=== PATIENT | female | born 1980 ===

== ENCOUNTER 2017-09-05 17:07 | Emergency (ER) | payer OTHER ==
[2017-09-05 17:21] VITALS: TEMP 98.5
[2017-09-05] MEDS ORDERED: Sodium Chloride 0.9% 500 ML IV STA (17:33)
[2017-09-05 18:20] VITALS: RESP 18
--- NOTE | 2017-09-05 18:44 | ED PDOC ---
Arrival/HPI - General Chief Complaint: ENT Problem Time Seen by Provider: 09/05/17 17:24 Historian: Patient, Family - History of Present Illness Narrative History of Present Illness (Text): 09/05/17 18:40 36yr old female presents today sent in by [facility] for evaluation of throat pain. pt states she has had painful swallowing x 2 months. + decreased hearing x 2 month. + nasal congestion. + dry cough. pt also c/o 1 week history of left sided back pain. no cp or sob. no vomiting/diarrhea. pt also states that she has been drinking 15 bottles of water daily. denies urinary symptoms. no other complaints. 09/05/17 18:43 Past Medical History - Provider Review Nursing Documentation Reviewed: Yes - Travel History Have you recently traveled outside [place] w/in the past 3 mons?: No - Infectious Disease Hx of Infectious Diseases: None - Tetanus Immunization Tetanus Immunization: Unknown - Psychiatric Hx Substance Use: No - Anesthesia Hx Anesthesia: No Family/Social History - Physician Review Nursing Documentation Reviewed: Yes Family/Social History: Unknown Family HX Smoking Status: Never Smoked Hx Alcohol Use: No Hx Substance Use: No Allergies/Home Meds Allergies/Adverse Reactions: Allergies No Known Allergies Allergy (Verified 09/05/17 17:16) Home Medications: Home Meds Medication Instructions Recorded Confirmed No Known Home Med 09/05/17 09/05/17 Review of Systems - Review of Systems Constitutional: Fevers. absent: Fatigue ENT: Sore Throat, Sinus Congestion Respiratory: Cough. absent: SOB, Wheezing Cardiovascular: absent: Chest Pain, Palpitations Gastrointestinal: absent: Abdominal Pain, Nausea, Vomiting Musculoskeletal: Back Pain. absent: Arthralgias, Neck Pain Skin: absent: Rash, Pruritis Neurological: absent: Headache, Dizziness Physical Exam Vital Signs Reviewed: Yes Vital Signs Temp Pulse Resp BP Pulse Ox 09/05/17 18:20 74 18 118/79 100 09/05/17 17:20 98.5 F 78 19 120/81 100 Temperature: Afebrile Blood Pressure: Normal Pulse: Regular Respiratory Rate: Normal Appearance: Positive for: Well-Appearing, Non-Toxic, Comfortable Pain Distress: None Mental Status: Positive for: Alert and Oriented X 3 - Systems Exam Head: Present: Atraumatic Conjunctiva: Present: Normal Ears: Present: Normal, NORMAL TM, Normal Canal. No: Erythema Mouth: Present: Moist Mucous Membranes, Normal Lips, Normal Tounge, Normal Teeth. No: Dry, Drooling, Trismus Pharnyx: Present: Normal. No: ERYTHEMA, EXUDATE, TONSILS ENLARGED, Peritonsilar Swelling, Uvular Deviation, Muffled/Hoarse Voice, Strider, Soft Palate/Uvular Edema Nose (External): Present: Atraumatic Nose (Internal): Present: Normal Inspection Neck: Present: Normal Range of Motion, Lymphadenopathy, Trachea Midline Respiratory/Chest: Present: Clear to Auscultation, Good Air Exchange. No: Respiratory Distress, Accessory Muscle Use Cardiovascular: Present: Regular Rate and Rhythm, Normal S1, S2. No: Murmurs Abdomen: No: Tenderness Back: Present: Normal Inspection, Other (+ minimal ttp over left upper back; no step offs or crepitus, no edema no erythema, no ecchymosis; no rash. ). No: CVA Tenderness, Midline Tenderness Upper Extremity: Present: Normal ROM Lower Extremity: Present: Normal ROM Neurological: Present: GCS=15, Speech Normal Skin: Present: Warm, Dry, Normal Color. No: Rashes Lymphatic: Present: Cervical Adenopathy Psychiatric: Present: Alert, Oriented x 3 Medical Decision Making ED Course and Treatment: 09/05/17 18:45 36yr old female with 2 month history of difficulty swallowing, b/l ear pain. cbc: wnl cmp; wnl UA: cxr: wnl ct soft tissue neck; FINDINGS: Nasopharynx: There is swelling/thickening of the right posterior wall of the nasopharynx and adjacent soft palate. This may be inflammatory, although a mass cannot be excluded. Oropharynx: See above. Hypopharynx: No acute abnormality. Larynx: Normal epiglottis. Trachea: No acute abnormality. Retropharyngeal space: No acute abnormality. Submandibular/parotid glands: Small intraparotid lymph nodes/nodules are visualized, which are subcentimeter in size. Thyroid: No enlarged or calcified nodules. Bones/joints: There is straightening of the lordotic curvature of the cervical spine. Vasculature: No acute findings. Lymph nodes: Mild enlarged level I cervical lymph nodes are identified bilaterally. On the left side, this measures 1.6 x 0.6 cm. These lymph nodes are nonspecific as to etiology. Additional small cervical lymph nodes are identified. Sinuses: Mucous retention cysts or polyps are visualized within the left maxillary sinus. Lung apices: Unremarkable as visualized. IMPRESSION: 1. There is swelling/thickening of the right posterior wall of the nasopharynx and adjacent soft palate. This may be inflammatory, although a mass cannot be excluded. Further clinical evaluation is recommended. 2. Mild enlarged level I cervical lymph nodes are identified bilaterally. These lymph nodes are nonspecific as to etiology. 3. Small intraparotid lymph nodes/nodules are visualized, which are subcentimeter in size. 4. Paranasal sinus disease is noted above. i discussed case in depth with dr. cortez; (ENT slab conditioner supervisor); he states that patient will need f/u outpatient for scope. pt can f/u in the office or at [facility] clinic. 09/05/17 21:15 all results discussed in depth with patient and boyfriend using curb and gutter laborer phone ; private branch exchange operator #[phone]. advised patient and boyfriend of CT findings of inflammation vs Mass. stressed importance of f/u with ENT specialist. impression; possible nasopharyneal mass Follow up with ENT specialist within the next 2 days. Follow up with the primary care physician within the next 2 days. return immediately if symptoms worsen, persist or if new symptoms develop. - Lab Interpretations Lab Results: 09/05/17 18:30 09/05/17 18:30 Lab Results 09/05/17 18:30: WBC 9.6, RBC 4.91, Hgb 14.3, Hct 40.8, MCV 83.1, MCH 29.1, MCHC 35.0, RDW 12.8, Plt Count 308, MPV 10.0, Gran % 70.2 H, Lymph % (Auto) 22.4, Bleckley % (Auto) 5.7, Eos % (Auto) 1.5, Baso % (Auto) 0.2, Gran # 6.76 H, Lymph # 2.2, Bleckley # 0.6, Eos # 0.1, Baso # 0.02 09/05/17 18:30: Sodium 142, Potassium 3.7, Chloride 106, Carbon Dioxide 25, Anion Gap 15, BUN 12, Creatinine 0.6 L, Est GFR ( Amer) > 60, Est GFR ( Non-Af Amer) > 60, Random Glucose 86, Calcium 9.2, Total Bilirubin 0.4, AST 28, ALT 24, Alkaline Phosphatase 77, Total Protein 7.8, Albumin 4.6, Globulin 3.2, Albumin/Globulin Ratio 1.4 - RAD Interpretation Radiology Orders: 09/05/17 17:32 NECK SOFT TISSUE W/CONTRAST [CT] Stat CHEST PORTABLE [RAD] Stat - Medication Orders Current Medication Orders: Discontinued Medications Sodium Chloride (Sodium Chloride 0.9%) 500 mls @ 999 mls/hr IV .Q31M STA Stop: 09/05/17 18:03 Last Admin: 09/05/17 18:30 Dose: 999 mls/hr eMAR Start Stop Document 09/05/17 18:30 LA (Rec: 09/05/17 18:39 LA [id number]) Intravenous Solution Start Date 09/05/17 Start Time 18:30 End Date 09/05/17 End time 19:00 Total Infusion Time 30 Disposition/Present on Arrival - Present on Arrival Any Indicators Present on Arrival: No History of DVT/PE: No History of Uncontrolled Diabetes: No Urinary Catheter: No History of Decub. Ulcer: No History Surgical Site Infection Following: None - Disposition Have Diagnosis and Disposition been Completed?: Yes Diagnosis: Nasopharyngeal mass, Throat pain Disposition: HOME/ ROUTINE Disposition Time: 21:22 Patient Plan: Discharge Condition: GOOD Additional Instructions: Follow up with ENT specialist within the next 2 days. Follow up with the primary care physician within the next 2 days. return immediately if symptoms worsen, persist or if new symptoms develop. Referrals: Fernandez Cortez DO [Doctor Osteopathy] - Follow up with primary Anthony Fleming MD [Staff Provider] - Follow up with primary [facility] [place] - Follow up with primary [facility] [Outside] - Follow up with primary Forms: Scaffold (Albanian), WORK NOTE
[2017-09-05 18:50] LABS: ALB/GLOB RATIO 1.4 (1.1-1.8); ALKALINE PHOSPHATASE 77 U/L (38-126); ALT/SGPT 24 U/L (7-56); AST/SGOT 28 U/L (14-36); BASO # 0.02 K/mm3 (0.0-2.0); BASO % 0.2 % (0.0-3.0); BILIRUBIN,TOTAL 0.4 mg/dL (0.2-1.3); BLOOD UREA NITROGEN 12 mg/dL (7-21); CALCIUM 9.2 mg/dL (8.4-10.5); CARBON DIOXIDE 25 mmol/L (21-33); CHLORIDE 106 mmol/L (98-107); EOS # 0.1 (0.0-0.7); EOS % 1.5 % (1.5-5.0); GFR AFRICAN-AMERICAN > 60; GLUCOSE,RANDOM 86 mg/dL (70-110); GRAN # 6.76 (1.4-6.5); GRAN % 70.2 % (50.0-68.0); HEMATOCRIT 40.8 % (36.0-48.0); LYMPH # 2.2 (1.2-3.4); LYMPH % 22.4 % (22.0-35.0); MEAN CELL VOLUME 83.1 fl (80.0-105.0); MEAN CORPUSCULAR HEMOGLOBIN 29.1 pg (25.0-35.0); MONO # 0.6 (0.1-0.6); MONO % 5.7 % (1.0-6.0); POTASSIUM 3.7 mmol/L (3.6-5.0); RED CELL DISTRIBUTION WIDTH 12.8 % (11.5-14.5); SODIUM 142 mmol/L (132-148); TOTAL PROTEIN 7.8 g/dL (5.8-8.3); WHITE BLOOD COUNT 9.6 10^3/ul (4.5-11.0)
[2017-09-05] MEDS ORDERED: Iohexol 350 MG/100 ML VIAL ONE (19:02)
--- NOTE | 2017-09-05 20:06 | CT ---
EXAM: CT Neck With Intravenous Contrast EXAM DATE/TIME: 09/05/2017 5:32 PM CLINICAL HISTORY: The patient age is 36 years old and is female; Pain; Throat pain; Additional info: 2 month history worsening pain/difficulty swallow Facility exam id and description: Ct neckst neck soft tissue w/contrast TECHNIQUE: Axial computed tomography images of the neck with intravenous contrast. All CT scans at this facility use one or more dose reduction techniques, viz.: automated exposure control; ma/kV adjustment per patient size (including targeted exams where dose is matched to indication; i.e. head); or iterative reconstruction technique. Coronal and sagittal reformatted images were created and reviewed. CONTRAST: 100 mL of omni administered intravenously. COMPARISON: No relevant prior studies available. FINDINGS: Nasopharynx: There is swelling/thickening of the right posterior wall of the nasopharynx and adjacent soft palate. This may be inflammatory, although a mass cannot be excluded. Oropharynx: See above. Hypopharynx: No acute abnormality. Larynx: Normal epiglottis. Trachea: No acute abnormality. Retropharyngeal space: No acute abnormality. Submandibular/parotid glands: Small intraparotid lymph nodes/nodules are visualized, which are subcentimeter in size. Thyroid: No enlarged or calcified nodules. Bones/joints: There is straightening of the lordotic curvature of the cervical spine. Vasculature: No acute findings. Lymph nodes: Mild enlarged level I cervical lymph nodes are identified bilaterally. On the left side, this measures 1.6 x 0.6 cm. These lymph nodes are nonspecific as to etiology. Additional small cervical lymph nodes are identified. Sinuses: Mucous retention cysts or polyps are visualized within the left maxillary sinus. Lung apices: Unremarkable as visualized. IMPRESSION: 1. There is swelling/thickening of the right posterior wall of the nasopharynx and adjacent soft palate. This may be inflammatory, although a mass cannot be excluded. Further clinical evaluation is recommended. 2. Mild enlarged level I cervical lymph nodes are identified bilaterally. These lymph nodes are nonspecific as to etiology. 3. Small intraparotid lymph nodes/nodules are visualized, which are subcentimeter in size. 4. Paranasal sinus disease is noted above.
[2017-09-05 21:15] LABS: PH,URINE 6.5 (4.7-8.0); URINE BILIRUBIN NEGATIVE (NEGATIVE); URINE BLOOD TRACE-LYSED (NEGATIVE); URINE GLUCOSE (UA) NEGATIVE (NEGATIVE); URINE KETONE NEGATIVE (NEGATIVE); URINE LEUKOCYTE ESTERASE NEGATIVE Leu/uL (NEGATIVE); URINE PROTEIN NEGATIVE mg/dL (<30 mg/dL); URINE UROBILINOGEN 0.2 E.U./dL (<1 E.U./dL)
[2017-09-05 21:22] LABS: URINE APPEARANCE CLEAR (CLEAR); URINE COLOR YELLOW (YELLOW)
[2017-09-05 21:32] LABS: URINE WBC 0 - 2 /hpf (0-6)
[2017-09-05 21:33] LABS: URINE BACTERIA FEW (NEG)
[2017-09-05 21:36] VITALS: BP 114/76; PULSE 64; O2SAT 98
--- NOTE | 2017-09-06 08:03 | RAD ---
HISTORY: cough COMPARISON: No prior. FINDINGS: LUNGS: No active pulmonary disease. PLEURA: No significant pleural effusion identified, no pneumothorax apparent. CARDIOVASCULAR: Normal. OSSEOUS STRUCTURES: No significant abnormalities. VISUALIZED UPPER ABDOMEN: Normal. OTHER FINDINGS: None. IMPRESSION: No active disease.
== END 2017-09-05 21:42 | disposition home or self-care (01) ==
LOC: ED 17:07
DX: J39.2 Other diseases of pharynx (principal); R07.0 Pain in throat
CPT/HCPCS: 70491; 71010; 80053; 81001; 85025; 99283; J7040; Q9967

== ENCOUNTER 2018-03-20 03:45 | Emergency (ER) | payer OTHER ==
[2018-03-20 04:04] VITALS: RESP 18; TEMP 97.9
--- NOTE | 2018-03-20 04:44 | ED PDOC ---
Arrival/HPI - General Chief Complaint: Abdominal Pain Time Seen by Provider: 03/20/18 04:24 Historian: Patient, Family - History of Present Illness Narrative History of Present Illness (Text): 03/20/18 04:41 Toma Newman is a 37 year old female who presents to the Emergency department accompanied by relative complaining of dysuria for the past 2 days, Patient states her last normal menstrual period was on 02/14/2018. Patient also complaining left lower leg pain for the past 2 days. Patient denies any fever, chills, chest pain, shortness of breath, nausea, vomiting, diarrhea, neck pain, headache, dizziness,vaginal discharge or any other complaints. Symptom Onset: Gradual Symptom Course: Unchanged Activities at Onset: Light Context: Home Past Medical History - Provider Review Nursing Documentation Reviewed: Yes - Infectious Disease Hx of Infectious Diseases: None - Tetanus Immunization Tetanus Immunization: Unknown - Psychiatric Hx Substance Use: No - Anesthesia Hx Anesthesia: No Family/Social History - Physician Review Nursing Documentation Reviewed: Yes Family/Social History: Unknown Family HX Smoking Status: Never Smoked Hx Alcohol Use: No Hx Substance Use: No Allergies/Home Meds Allergies/Adverse Reactions: Allergies No Known Allergies Allergy (Verified 03/20/18 04:00) Review of Systems - Physician Review All systems were reviewed & negative as marked: Yes - Review of Systems Constitutional: Normal. absent: Fevers Eyes: Normal ENT: Normal Respiratory: Normal. absent: SOB, Cough Cardiovascular: Normal. absent: Chest Pain Gastrointestinal: Normal. absent: Abdominal Pain, Diarrhea, Nausea, Vomiting Genitourinary Female: Dysuria. absent: Hematuria, Urine Output Changes, Vaginal Bleeding Musculoskeletal: Other (+left leg pain). absent: Back Pain, Neck Pain Skin: Normal. absent: Rash Neurological: Normal. absent: Headache, Dizziness Endocrine: Normal Hemo/Lymphatic: Normal Psychiatric: Normal Physical Exam Vital Signs Reviewed: Yes Vital Signs Temp Pulse Resp BP Pulse Ox 03/20/18 05:46 84 18 118/74 99 03/20/18 04:01 97.9 F 87 18 120/75 98 Temperature: Afebrile Blood Pressure: Normal Pulse: Regular Respiratory Rate: Normal Appearance: Positive for: Well-Appearing, Non-Toxic, Comfortable Pain Distress: None Mental Status: Positive for: Alert and Oriented X 3 - Systems Exam Head: Present: Atraumatic, Normocephalic Pupils: Present: PERRL Extroacular Muscles: Present: EOMI Conjunctiva: Present: Normal Mouth: Present: Moist Mucous Membranes Neck: Present: Normal Range of Motion Respiratory/Chest: Present: Clear to Auscultation, Good Air Exchange. No: Respiratory Distress, Accessory Muscle Use Cardiovascular: Present: Regular Rate and Rhythm, Normal S1, S2. No: Murmurs Abdomen: No: Tenderness, Distention, Peritoneal Signs Back: Present: Normal Inspection. No: CVA Tenderness, Midline Tenderness, Paraspinal Tenderness Upper Extremity: Present: Normal Inspection. No: Cyanosis, Edema Lower Extremity: Present: Normal Inspection, NORMAL PULSES, Normal ROM, Neurovascularly Intact. No: Edema, CALF TENDERNESS, Cyanosis, Jarred's Sign, Tenderness, Swelling, Erythema, Deformity, Temperature Abnormalties Neurological: Present: GCS=15, CN II-XII Intact, Speech Normal, Motor Func Grossly Intact, Normal Sensory Function Skin: Present: Warm, Dry, Normal Color. No: Rashes Psychiatric: Present: Alert, Oriented x 3, Normal Insight, Normal Concentration Medical Decision Making ED Course and Treatment: 03/20/18 04:41 Impression: 37 year old female complaining of dysuria and left leg pain x 2 days. Plan: -- Labs, blood type and screen, Beta-HCG -- Urinalysis -- Transvaginal US -- US Duplex Lower Extremities -- Reassess and disposition Progress Notes: 03/20/18 06:38 Pt. feels fine in ED.Pt. is G2 AB1.Will commence on Macrobid antibiotics for UTI.Pt. with early advised follow up with her front end alignment specialist this week.States she will do so. - Lab Interpretations Lab Results: 03/20/18 04:50 03/20/18 04:50 Lab Results 03/20/18 04:50: Blood Type O POSITIVE, Antibody Screen Negative, BBK History Checked No verified bt 03/20/18 04:50: Beta HCG, Quant 1009.10 H 03/20/18 04:50: WBC 8.7, RBC 4.34, Hgb 12.2 D, Hct 35.0 L, MCV 80.6, MCH 28.1, MCHC 34.9, RDW 13.1, Plt Count 266, MPV 9.2 03/20/18 04:50: Sodium 143, Potassium 3.5 L, Chloride 108 H, Carbon Dioxide 22, Anion Gap 16, BUN 4 L, Creatinine 0.6 L, Est GFR ( Amer) > 60, Est GFR ( Non-Af Amer) > 60, Random Glucose 102, Calcium 8.6, Total Bilirubin 0.3, AST 36 D, ALT 29, Alkaline Phosphatase 50, Total Protein 6.9, Albumin 4.1, Globulin 2.8, Albumin/Globulin Ratio 1.5 03/20/18 04:20: Urine Color Yellow, Urine Appearance Clear, Urine pH 6.5, Ur Specific Gustavus <= 1.005, Urine Protein Negative, Urine Glucose (UA) Negative, Urine Ketones Negative, Urine Blood Trace-intact H, Urine Nitrate Negative, Urine Bilirubin Negative, Urine Urobilinogen 0.2, Ur Leukocyte Esterase Negative , Urine RBC 0 - 2, Urine WBC 0 - 2, Ur Epithelial Cells 0 - 2, Urine HCG, Qual Positive - RAD Interpretation Narrative RAD Interpretations (Text): 03/20/18 06:17 Venous doppler lower extremities-Negative for DVT Radiology Orders: 03/20/18 04:45 DUPLEX LOWER EXTRM VEIN BILAT [US] Stat 03/20/18 04:46 OB TRANSVAGINAL [US] Stat - Medication Orders Current Medication Orders: Sodium Chloride (Sodium Chloride 0.9%) 500 mls @ 500 mls/hr IV .Q1H STA Stop: 03/20/18 07:20 Last Admin: 03/20/18 06:29 Dose: 500 mls/hr eMAR Start Stop Document 03/20/18 06:29 PRETTY (Rec: 03/20/18 06:29 [facility]nathan [facility] [id number]) Intravenous Solution Start Date 03/20/18 Start Time 06:29 End Date 03/20/18 End time 06:59 Total Infusion Time 30 Nitrofurantoin Macrocrystals (Macrobid) 100 mg PO ONCE ONE PRN Reason: Protocol Stop: 03/20/18 06:37 - Scribe Statement The provider has reviewed the documentation as recorded by the Salvadoribrubens Sanders Provider Scribe Attestation: All medical record entries made by the Scribe were at my direction and personally dictated by me. I have reviewed the chart and agree that the record accurately reflects my personal performance of the history, physical exam, medical decision making, and the department course for this patient. I have also personally directed, reviewed, and agree with the discharge instructions and disposition. Disposition/Present on Arrival - Present on Arrival Any Indicators Present on Arrival: No History of DVT/PE: No History of Uncontrolled Diabetes: No Urinary Catheter: No History of Decub. Ulcer: No History Surgical Site Infection Following: None - Disposition Have Diagnosis and Disposition been Completed?: Yes Diagnosis: Early stage of , UTI (urinary tract infection), Muscle strain, lower leg Disposition: HOME/ ROUTINE Disposition Time: 06:40 Patient Plan: Discharge Condition: STABLE Discharge Instructions (ExitCare): Urinary Tract Infection, Adult (DC), - The First Month, Muscle Strain (DC) Additional Instructions: Drink plenty of liquids/take meds as prescribed/avoid strenuous physical activity/follow up with your front end alignment specialist this week Prescriptions: Nitrofurantoin Macrocrystals [Macrobid] 100 mg PO BID #6 cap Forms: Slicebooks (Arabic)
[2018-03-20 04:48] LABS: PH,URINE 6.5 (4.7-8.0); URINE BILIRUBIN NEGATIVE (NEGATIVE); URINE BLOOD TRACE-INTACT (NEGATIVE); URINE GLUCOSE (UA) NEGATIVE (NEGATIVE); URINE LEUKOCYTE ESTERASE NEGATIVE Leu/uL (NEGATIVE); URINE PROTEIN NEGATIVE mg/dL (<30 mg/dL); URINE UROBILINOGEN 0.2 E.U./dL (<1 E.U./dL)
[2018-03-20 04:53] LABS: HCG,QUALITATIVE URINE POSITIVE (NEGATIVE); URINE APPEARANCE CLEAR (CLEAR); URINE COLOR YELLOW (YELLOW)
[2018-03-20 05:05] LABS: URINE EPITHELIAL CELLS 0 - 2 /hpf (0-5); URINE RBC 0 - 2 /hpf (0-2); URINE WBC 0 - 2 /hpf (0-6)
[2018-03-20 05:06] LABS: MEAN CELL VOLUME 80.6 fl (80.0-105.0); MEAN CORPUSCULAR HEMOGLOBIN 28.1 pg (25.0-35.0); MEAN CORPUSCULAR HGB CONC 34.9 g/dl (31.0-37.0); MEAN PLATELET VOLUME 9.2 fl (7.0-11.0); RBC 4.34 10^6/uL (3.5-6.1); RED CELL DISTRIBUTION WIDTH 13.1 % (11.5-14.5); WHITE BLOOD COUNT 8.7 10^3/ul (4.5-11.0)
[2018-03-20 05:14] LABS: HEMOGLOBIN 12.2 g/dL (12.0-16.0)
[2018-03-20 05:20] LABS: ALB/GLOB RATIO 1.5 (1.1-1.8); ALBUMIN 4.1 g/dL (3.0-4.8); ALT/SGPT 29 U/L (7-56); AST/SGOT 36 U/L (14-36); BLOOD UREA NITROGEN 4 mg/dL (7-21); CALCIUM 8.6 mg/dL (8.4-10.5); GFR AFRICAN-AMERICAN > 60; GFR NON-AFRICAN AMERICAN > 60
--- NOTE | 2018-03-20 06:18 | US ---
EXAM: US First Trimester, Transabdominal US , Transvaginal CLINICAL HISTORY: 37 years old, female; Pain; complicated by abdominal or pelvic pain; Lower; First trimester; Gestational age or lmp: 01/26/2018; TECHNIQUE: Real-time transabdominal and transvaginal obstetrical ultrasound of the maternal pelvis and a first trimester with image documentation. Transvaginal imaging was used for better evaluation of the fetus and adnexa. COMPARISON: No relevant prior studies available. FINDINGS: Gestation: 0.5 x 0.4 x 0.5 cm saclike structure within uterus. No yolk sac. No pole. Uterus/cervix: Retroverted uterus. Two uterine masses, larger measuring 3.2 x 3.3 x 4.6 cm. Endometrium: 2.9 cm in thickness. Closed cervix. Ovaries: Normal ovaries. No adnexal masses. Free fluid: No significant free fluid. IMPRESSION: 1. Sac without pole or yolk sac. DDX: Early IUP, blighted ovum, ectopic (with pseudogestational sac). Followup is recommended. 2. Probable fibroid uterus.
[2018-03-20] MEDS ORDERED: Sodium Chloride 0.9% 500 ML IV STA (06:21)
[2018-03-20 07:04] VITALS: BP 125/74; PULSE 72; O2SAT 100
--- NOTE | 2018-03-20 14:32 | US ---
HISTORY: Leg pain and swelling. Evaluate for DVT PHYSICIAN(S): Robinson Nunez MD. TECHNIQUE: Duplex sonography and color-flow Doppler with graded compression were used to evaluate the deep venous systems of both lower extremities. FINDINGS: The visualized deep venous systems of both lower extremities are sonographically normal and compressible. Normal wave forms and augmentation are seen. There is no sonographic evidence for deep venous thrombosis in the visualized segments of both lower extremities. IMPRESSION: No sonographic evidence for deep venous thrombosis in the visualized segments of both lower extremities.
== END 2018-03-20 07:04 | disposition home or self-care (01) ==
LOC: ED 03:45
DX: O23.40 Unspecified infection of urinary tract in pregnancy, unspecified trimester (principal); Z3A.00 Weeks of gestation of pregnancy not specified; S86.912A Strain of unspecified muscle(s) and tendon(s) at lower leg level, left leg, initial encounter; X58.XXXA Exposure to other specified factors, initial encounter; Y92.9 Unspecified place or not applicable
CPT/HCPCS: 76817; 80053; 81001; 84702; 84703; 85027; 86850; 86900; 93970; 99284; J7040

== ENCOUNTER 2018-04-05 18:23 | Emergency (ER) | payer OTHER ==
[2018-04-05 18:31] VITALS: BMI 26.0
[2018-04-05 18:35] VITALS: O2SAT 100
[2018-04-05 19:12] LABS: BASO # 0.01 K/mm3 (0.0-2.0); BASO % 0.1 % (0.0-3.0); EOS # 0.1 (0.0-0.7); EOS % 0.5 % (1.5-5.0); GRAN # 8.85 (1.4-6.5); GRAN % 74.2 % (50.0-68.0); HEMOGLOBIN 13.3 g/dL (12.0-16.0); LYMPH # 2.4 (1.2-3.4); LYMPH % 19.8 % (22.0-35.0); MEAN CORPUSCULAR HEMOGLOBIN 28.7 pg (25.0-35.0); MEAN CORPUSCULAR HGB CONC 35.4 g/dl (31.0-37.0); MEAN PLATELET VOLUME 9.2 fl (7.0-11.0); MONO # 0.7 (0.1-0.6); MONO % 5.4 % (1.0-6.0); RBC 4.64 10^6/uL (3.5-6.1); RED CELL DISTRIBUTION WIDTH 13.2 % (11.5-14.5); URINE APPEARANCE CLEAR (CLEAR); URINE BILIRUBIN NEGATIVE (NEGATIVE); URINE BLOOD SMALL (NEGATIVE); URINE COLOR YELLOW (YELLOW); URINE GLUCOSE (UA) NEGATIVE (NEGATIVE); URINE LEUKOCYTE ESTERASE NEGATIVE Leu/uL (NEGATIVE); URINE PROTEIN NEGATIVE mg/dL (<30 mg/dL); URINE UROBILINOGEN 0.2 E.U./dL (<1 E.U./dL); WHITE BLOOD COUNT 11.9 10^3/ul (4.5-11.0)
[2018-04-05 19:15] LABS: URINE RBC 0 - 2 /hpf (0-2); URINE WBC NEGATIVE /hpf (0-6)
--- NOTE | 2018-04-05 19:26 | ED PDOC ---
Arrival/HPI <Grace Cosme - Last Filed: 04/05/18 21:07> <Frances Charlton - Last Filed: 04/05/18 21:39> - General Chief Complaint: Abdominal Pain Time Seen by Provider: 04/05/18 18:43 - History of Present Illness Narrative History of Present Illness (Text): 04/05/18 19:19 Patient is a 37 year old female with a past medical history of miscarriage at 2 months in 2004 who presents to the Emergency department complaining of abdominal pain, and vaginal discharge with bleeding. Patient says this started a few weeks ago. At that time she came to the hospital and was given monostat 3 and augmentin, and also found out she was . Patient took the medications as directed finishing them 1 week ago, but her "belly button pain" worsened to the point where she felt like her " belly button was going to explode". Patient says the thick yellow vaginal discharge did not resolve either and yesterday she noticed red streaking throughout the discharge. Patient admits to chills and vomiting. She denies fever, dizziness, headache, diarrhea, constipation, changes in urinary habits, vaginal lesions, and chest pain/shortness of breath. PMH: denies Meds: denies (other than those temporary listed above) Allergies: NKDA PSH: denies FH: denies SH: denies tobacco, alcohol, and elicit drug use 04/05/18 20:32 (Grace Cosme) Past Medical History - Infectious Disease Hx of Infectious Diseases: None - Tetanus Immunization Tetanus Immunization: Unknown - Psychiatric Hx Substance Use: No - Anesthesia Hx Anesthesia: No <Grace Cosme - Last Filed: 04/05/18 21:07> Family/Social History Family/Social History: No Known Family HX Smoking Status: Never Smoked Hx Alcohol Use: No Hx Substance Use: No <Grace Cosme - Last Filed: 04/05/18 21:07> Allergies/Home Meds <Grace Cosme - Last Filed: 04/05/18 21:07> <Frances Charlton - Last Filed: 04/05/18 21:39> Allergies/Adverse Reactions: Allergies No Known Allergies Allergy (Verified 03/20/18 04:00) Review of Systems - Physician Review All systems were reviewed & negative as marked: Yes - Review of Systems Constitutional: Normal Eyes: Normal ENT: Rhinorrhea Respiratory: Normal Cardiovascular: Normal Gastrointestinal: Abdominal Pain, Vomiting. absent: Constipation, Diarrhea, Hematemesis Genitourinary Female: Vaginal Bleeding, Vaginal Discharge. absent: Dysuria, Frequency, Hematuria Musculoskeletal: Normal Skin: Normal Neurological: Normal Psychiatric: Anxiety (worried she will lose this ) <Grace Cosme - Last Filed: 04/05/18 21:07> Physical Exam - Systems Exam Head: Present: Atraumatic, Normocephalic Pupils: Present: PERRL Extroacular Muscles: Present: EOMI Conjunctiva: Present: Normal Mouth: Present: Moist Mucous Membranes Neck: Present: Normal Range of Motion Respiratory/Chest: Present: Clear to Auscultation, Good Air Exchange. No: Respiratory Distress, Accessory Muscle Use Cardiovascular: Present: Regular Rate and Rhythm, Normal S1, S2. No: Murmurs Abdomen: Present: Tenderness (periumbilical), Guarding (voluntary). No: Distention, Peritoneal Signs Upper Extremity: Present: Normal Inspection Lower Extremity: Present: Normal Inspection Neurological: Present: GCS=15, Speech Normal Skin: Present: Warm, Dry, Normal Color. No: Rashes Psychiatric: Present: Alert, Oriented x 3, Normal Insight, Normal Concentration <Grace Cosme - Last Filed: 04/05/18 21:07> Vital Signs Temp Pulse Resp BP Pulse Ox 04/05/18 18:33 98.2 F 91 H 18 122/79 100 Medical Decision Making <Grace Cosme - Last Filed: 04/05/18 21:07> <Frances Charlton - Last Filed: 04/05/18 21:39> ED Course and Treatment: Patient Seen With Resident: In agreement with resident note which contains more details about the patient. Patient was seen and evaluated with resident. Came up with plan and treatment together. Vaginal discharge is white and clumpy with itchiness. 04/05/18 20:59 Gestation: Single live intrauterine . Ultrasound image is 6 weeks and 4 days. heart rate is 143 beats per minute. Placenta/amniotic fluid: Cannot be adequately evaluated due to the early gestational age. Uterus/cervix: myomas noted, intramural left 4.1 x 3.6 cm myoma and 1.1 x 1.2 cm anterior intramural myoma. Ovaries: Cysts in the left ovary measuring 2.3 x 2 cm. Free fluid: No free fluid. IMPRESSION: Single live intrauterine . Ultrasound image is 6 weeks and 4 days. heart rate is 143 beats per minute. 04/05/18 21:37 (Frances Charlton) - Lab Interpretations Lab Results: 04/05/18 18:55 04/05/18 18:55 Lab Results 04/05/18 18:55: Blood Type O POSITIVE, Antibody Screen Negative, BBK History Checked Patient has bt 04/05/18 18:55: Beta HCG, Quant 11510.00 H 04/05/18 18:55: Sodium 144, Potassium 3.5 L, Chloride 106, Carbon Dioxide 20 L, Anion Gap 21 H, BUN 5 L, Creatinine 0.5 L, Est GFR ( Amer) > 60, Est GFR (Non-Af Amer) > 60, Random Glucose 93, Calcium 9.1, Total Bilirubin 0.4, AST 33 , ALT 54, Alkaline Phosphatase 56, Total Protein 8.0, Albumin 4.7, Globulin 3.3 , Albumin/Globulin Ratio 1.4 04/05/18 18:55: Urine Color Yellow, Urine Appearance Clear, Urine pH 6.0, Ur Specific [place] <= 1.005, Urine Protein Negative, Urine Glucose (UA) Negative, Urine Ketones 15 H, Urine Blood Small H, Urine Nitrate Negative, Urine Bilirubin Negative, Urine Urobilinogen 0.2, Ur Leukocyte Esterase Negative, Urine RBC 0 - 2, Urine WBC Negative 04/05/18 18:55: WBC 11.9 H D, RBC 4.64, Hgb 13.3, Hct 37.6, MCV 81.0, MCH 28.7, MCHC 35.4, RDW 13.2, Plt Count 294, MPV 9.2, Gran % 74.2 H, Lymph % (Auto) 19.8 L, [place] % (Auto) 5.4, Eos % (Auto) 0.5 L, Baso % (Auto) 0.1, Gran # 8.85 H, Lymph # (Auto) 2.4, [place] # (Auto) 0.7 H, Eos # (Auto) 0.1, Baso # (Auto) 0.01 - RAD Interpretation Radiology Orders: 04/05/18 18:43 OB TRANSVAGINAL [US] Stat - PA / COUNT ROOM CLERK / Resident Statement MD/DO has reviewed & agrees with the documentation as recorded. MD/DO has examined the patient and agrees with the treatment plan. <Grace Cosme - Last Filed: 04/05/18 21:07> - Scribe Statement The provider has reviewed the documentation as recorded by the Scribe <Frances Charlton - Last Filed: 04/05/18 21:39> - Scribe Statement Yahir Woodard Provider Scribe Attestation: All medical record entries made by the Scribe were at my direction and personally dictated by me. I have reviewed the chart and agree that the record accurately reflects my personal performance of the history, physical exam, medical decision making, and the department course for this patient. I have also personally directed, reviewed, and agree with the discharge instructions and disposition. (Frances Charlton) Disposition/Present on Arrival - Present on Arrival History of DVT/PE: No History of Uncontrolled Diabetes: No Urinary Catheter: No History of Decub. Ulcer: No History Surgical Site Infection Following: None <BaGrace - Last Filed: 04/05/18 21:07> - Present on Arrival Any Indicators Present on Arrival: No - Disposition Have Diagnosis and Disposition been Completed?: Yes Disposition Time: 20:59 Patient Plan: Discharge <Frances Charlton - Last Filed: 04/05/18 21:39> - Disposition Diagnosis: Threatened , Yeast infection Disposition: HOME/ ROUTINE Patient Problems: Current Active Problems Problem Status Onset Threatened Acute Condition: GOOD Discharge Instructions (ExitCare): Threatened Miscarriage Print Language: FRENCH Additional Instructions: Follow-up with OB within 2 days. Start monistat 7. Return to ED if condition worsens. Referrals: Farehelpercherelle Cortez, [Primary Care Provider] - Follow up with primary Forms: [employer] (Romanian), WORK NOTE
[2018-04-05 19:33] LABS: ALB/GLOB RATIO 1.4 (1.1-1.8); ALBUMIN 4.7 g/dL (3.0-4.8); ALT/SGPT 54 U/L (7-56); AST/SGOT 33 U/L (14-36); BLOOD UREA NITROGEN 5 mg/dL (7-21); CALCIUM 9.1 mg/dL (8.4-10.5); GFR AFRICAN-AMERICAN > 60; GFR NON-AFRICAN AMERICAN > 60
[2018-04-05 23:24] VITALS: BP 125/80; PULSE 90; RESP 19; TEMP 98
--- NOTE | 2018-04-06 11:53 | US ---
HISTORY: , vaginal bleeding ; last menstrual period is reported 02/14/2018 with estimated gestational age of 7 weeks 1 day. COMPARISON: None available. TECHNIQUE: Transvaginal pelvic ultrasound was performed with longitudinal and transverse images submitted for interpretation. FINDINGS: UTERUS: Measures 11.5 x 6.5 x 8.1 cm. There is a inhomogeneous but predominate hypoechoic mass identified at the lower uterine segment at the left side of the fundus bridging submucous and sub serosal locations measuring 4.2 x 3.6 x 3.7 cm. Internal calcifications are identified shadowing posteriorly with the lesion compatible with a fibroid. There is an additional hypoechoic partially shadowing lesion at the right parasagittal fundus intramural in location measuring 1.2 x 0.9 x 1.1 cm compatible with an additional fibroid. No additional myometrial lesion otherwise. ENDOMETRIUM: A gestational sac is identified within the endometrial cavity with yolk sac and pole identified. Hypoechoic heterogeneous echo signals are appreciated at the anterosuperior edge of the chorion raising question of anterior decidual hemorrhage. The mean sac diameter is 2.0 cm with yolk sac measuring 0.24 cm and the pole measuring 0.67 cm. This corresponds to estimated gestational age of 6 weeks 4 days by gestational sac mean and pole mean measurements. Cardiac activity is recorded 143 beats per minute. Estimated date of delivery 11/25/2018. Average ultrasonic age and estimated gestational age by LMP are concordant. CERVIX: A few tiny nabothian cyst identified in the anterior cervix which is otherwise unremarkable appearing. RIGHT OVARY: Measures 2.3 x 1.3 x 1.4 cm. No solid mass. Normal flow. LEFT OVARY: Measures 3.6 x 2.1 x 2.2 cm. No solid mass. Normal flow. A 2.3 x 1.4 x 2.0 cm cyst is identified in the left ovary suggestive of a likely corpus luteum cyst. FREE FLUID: No significant free fluid noted. OTHER FINDINGS: None. IMPRESSION: A single viable intrauterine gestation is identified with average ultrasonic age of 6 weeks 4 days which is concordant with LMP derived dates of 7 weeks 1 day. cardiac activity 143 beats per minute. Likely left ovarian corpus luteum cyst 2.3 cm. Potential moderate anterior decidual hemorrhage. Further clinical correlation recommended. Follow ultrasonography is recommended as well. Discordant preliminary report from [facility], 04/05/2018. PA review added in findings were discussed with Dr. Valverde with written down read back verification 04/06/2018 11:45 a.m..
== END 2018-04-05 22:15 | disposition home or self-care (01) ==
LOC: ED 18:23
DX: O20.0 Threatened abortion (principal); O98.811 Other maternal infectious and parasitic diseases complicating pregnancy, first trimester; Z3A.01 Less than 8 weeks gestation of pregnancy

== ENCOUNTER 2018-04-13 12:46 | Emergency (ER) | payer OTHER ==
[2018-04-13 12:47] VITALS: BMI 26.0
[2018-04-13 13:12] VITALS: RESP 18; TEMP 98.2; O2SAT 98
--- NOTE | 2018-04-13 13:12 | ED PDOC ---
Arrival/HPI - General Chief Complaint: Female Genitourinary Time Seen by Provider: 04/13/18 12:51 - History of Present Illness Narrative History of Present Illness (Text): 04/13/18 13:09 Patient is a 37 y/o F, approximately 8 weeks , presenting with vaginal bleeding. Patient was seen in ED on 04/05 with u/s that showed IUP at 6 weeks 4 days with FHR:143, with corpeus luteal cyst and ammended report that showed moderate anterior decidual hemorrhage. At that time bhcg 39,754 and O+. She was discharged home with monistat for yeast infection. 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 Delgado Rabago, [phone]. She reports that the vaginal itching resolved after monistat but patient reports that today she began to have increased abdominal cramping and vaginal bleeding with passage of clots. Chart review shows patient was seen in [facility] on 03/20 with ultrasound and discharged with antibiotics for uti. Has records of U/S on 03.[address] Alcocer with IUP at 6w 2 days, FHR:122. 04/13/18 13:26 Past Medical History - Provider Review Nursing Documentation Reviewed: Yes - Infectious Disease Hx of Infectious Diseases: None - Tetanus Immunization Tetanus Immunization: Unknown - Psychiatric Hx Substance Use: No - Anesthesia Hx Anesthesia: No Family/Social History - Physician Review Nursing Documentation Reviewed: Yes Family/Social History: No Known Family HX Smoking Status: Never Smoked Hx Alcohol Use: No Hx Substance Use: No Allergies/Home Meds Allergies/Adverse Reactions: Allergies No Known Allergies Allergy (Verified 03/20/18 04:00) Review of Systems - Review of Systems Constitutional: absent: Fatigue, Weight Change Respiratory: absent: SOB, Cough, Sputum, Wheezing Cardiovascular: absent: Chest Pain Gastrointestinal: Abdominal Pain (cramping). absent: Constipation, Diarrhea, Nausea, Vomiting Genitourinary Female: Dysuria, Vaginal Bleeding Skin: absent: Rash, Pruritis Neurological: absent: Headache, Dizziness, Focal Weakness, Speech Changes Physical Exam Vital Signs Reviewed: Yes Vital Signs Temp Pulse Resp BP Pulse Ox 04/13/18 15:31 78 18 110/68 98 04/13/18 12:59 98.2 F 85 18 108/71 98 Temperature: Afebrile Blood Pressure: Normal Pulse: Regular Respiratory Rate: Normal Appearance: Positive for: Well-Appearing, Non-Toxic, Comfortable Pain Distress: None Mental Status: Positive for: Alert and Oriented X 3 - Systems Exam Head: Present: Atraumatic, Normocephalic Pupils: Present: PERRL Extroacular Muscles: Present: EOMI Conjunctiva: Present: Normal Mouth: Present: Moist Mucous Membranes Neck: Present: Normal Range of Motion Respiratory/Chest: Present: Clear to Auscultation, Good Air Exchange. No: Respiratory Distress Cardiovascular: Present: Regular Rate and Rhythm, Normal S1, S2. No: Murmurs Abdomen: No: Tenderness, Distention Medical Decision Making ED Course and Treatment: 04/13/2018 14:35 Transvaginal Ultrasound IMPRESSION: Single intrauterine gestation with normal cardiac activity whose menstrual age by ultrasound parameters is 8 weeks 3 days 0 weeks 4 days with an estimated date of delivery of 11/20/2018. This is concordant with the clinical dates of 8 weeks 2 days with an estimated date of delivery per LMP of 11/21/2018. No subchorionic or pre uterine hemorrhage appreciated. Uterine fibroids as referenced above. No continuity with gestational sac or decidual reaction appreciated. The largest fibroid is in the lower uterine segment as referenced above Dictator: Farida Valdez MD 04/13/18 14:51 BHCG increasing. On reevaluation, patient reports bleeding has lessened. Abdomen soft NT/ND. Used french speaking Nurse Jo Ann and patient reports understanding of all discharge instructions. 04/13/18 15:39 - Lab Interpretations Lab Results: 04/13/18 13:12 04/13/18 13:12 Lab Results 04/13/18 14:50: Urine Color Straw, Urine Appearance Clear, Urine pH 7.0, Ur Specific [place] 1.010, Urine Protein Negative, Urine Glucose (UA) Negative, Urine Ketones Trace H, Urine Blood Large H, Urine Nitrate Negative, Urine Bilirubin Negative, Urine Urobilinogen 0.2, Ur Leukocyte Esterase Negative, Urine RBC 20 - 25, Urine WBC 0 - 2, Ur Epithelial Cells 1 - 3 04/13/18 13:12: Beta HCG, Quant [id number] H 04/13/18 13:12: Sodium 143, Potassium 3.9, Chloride 106, Carbon Dioxide 21, Anion Gap 20, BUN 6 L, Creatinine 0.5 L, Est GFR ( Amer) > 60, Est GFR ( Non-Af Amer) > 60, Random Glucose 96, Calcium 9.3, Total Bilirubin 0.4, AST 36, ALT 60 H, Alkaline Phosphatase 54, Total Protein 7.9, Albumin 4.6, Globulin 3.3 , Albumin/Globulin Ratio 1.4 04/13/18 13:12: WBC 13.0 H, RBC 4.73, Hgb 13.8, Hct 38.2, MCV 80.8, MCH 29.2, MCHC 36.1, RDW 13.0, Plt Count 317, MPV 9.4, Gran % 75.6 H, Lymph % (Auto) 19.0 L, [place] % (Auto) 4.7, Eos % (Auto) 0.5 L, Baso % (Auto) 0.2, Gran # 9.83 H, Lymph # (Auto) 2.5, [place] # (Auto) 0.6, Eos # (Auto) 0.1, Baso # (Auto) 0.02 I have reviewed the lab results: Yes - RAD Interpretation Radiology Orders: 04/13/18 12:54 OB TRANSVAGINAL [US] Stat Disposition/Present on Arrival - Present on Arrival Any Indicators Present on Arrival: No History of DVT/PE: No History of Uncontrolled Diabetes: No Urinary Catheter: No History of Decub. Ulcer: No History Surgical Site Infection Following: None - Disposition Have Diagnosis and Disposition been Completed?: Yes Diagnosis: Threatened Disposition: HOME/ ROUTINE Disposition Time: 14:40 Patient Plan: Discharge Patient Problems: Current Active Problems Problem Status Onset Threatened Acute Condition: GOOD Discharge Instructions (ExitCare): Threatened Miscarriage Print Language: BRITISH [place] IS[place] Additional Instructions: Follow-up with your venetian blind maker within 3 days. Return to ED if condition worsens Referrals: Yovany Cortez, [Primary Care Provider] - Follow up with primary Forms: [employer] (Maori)
[2018-04-13 13:17] LABS: BASO # 0.02 K/mm3 (0.0-2.0); BASO % 0.2 % (0.0-3.0); EOS # 0.1 (0.0-0.7); EOS % 0.5 % (1.5-5.0); GRAN # 9.83 (1.4-6.5); GRAN % 75.6 % (50.0-68.0); HEMOGLOBIN 13.8 g/dL (12.0-16.0); LYMPH # 2.5 (1.2-3.4); MEAN CELL VOLUME 80.8 fl (80.0-105.0); MEAN CORPUSCULAR HEMOGLOBIN 29.2 pg (25.0-35.0); MEAN CORPUSCULAR HGB CONC 36.1 g/dl (31.0-37.0); MEAN PLATELET VOLUME 9.4 fl (7.0-11.0); MONO # 0.6 (0.1-0.6); MONO % 4.7 % (1.0-6.0); RBC 4.73 10^6/uL (3.5-6.1)
[2018-04-13 13:26] LABS: ALB/GLOB RATIO 1.4 (1.1-1.8); ALBUMIN 4.6 g/dL (3.0-4.8); ALT/SGPT 60 U/L (7-56); AST/SGOT 36 U/L (14-36); BLOOD UREA NITROGEN 6 mg/dL (7-21); CALCIUM 9.3 mg/dL (8.4-10.5); GFR AFRICAN-AMERICAN > 60; GFR NON-AFRICAN AMERICAN > 60
--- NOTE | 2018-04-13 14:36 | US ---
HISTORY: vaginal bleeding, LMP 02/14/2018. COMPARISON: 04/05/2018 TECHNIQUE: Transvaginal FINDINGS: UTERUS: Measures anteverted uterus measuring 12.9 x 7.6 x 9.5 cm. Prior fibroids renoted the largest is in the lower uterine segment this appears near transmural and measures 5.2 x 4.1 x 5.0 cm. It appears removed from the more cephalad intrauterine gestational sac. The smaller intramural fibroid projects posteriorly on this exam- this may be due to orientation of the transducer -on this exam it measures 1.2 x 0.8 x 1.0 cm. No continuity with the gestational sac or decidual reaction suggested. A single intrauterine gestational sac with pole and yolk sac are present. Gestational sac mean diameter is 3.5 cm. Yolk sac is 0.3 cm. pole crown-rump length is 1.85 cm Fetus/embryonic heart activity is 169 beats per minute. On this exam no subchorionic or intrauterine hemorrhage is seen. The previously referenced anterior uterine fibroid is not visualized on this exam. This can sometimes be due to positioning/ orientation of the transducer CERVIX: Multiple clustered sub cm nabothian cyst noted cervical length is 3.6 cm. RIGHT OVARY: Measures 3.0 x 2.7 x 1.2 cm. No solid mass. Normal flow. LEFT OVARY: Not seen. Prior left corpus luteal cyst is not identified. FREE FLUID: No significant free fluid noted. OTHER FINDINGS: None. IMPRESSION: Single intrauterine gestation with normal cardiac activity whose menstrual age by ultrasound parameters is 8 weeks 3 days 0 weeks 4 days with an estimated date of delivery of 11/20/2018. This is concordant with the clinical dates of 8 weeks 2 days with an estimated date of delivery per LMP of 11/21/2018. No subchorionic or pre uterine hemorrhage appreciated. Uterine fibroids as referenced above. No continuity with gestational sac or decidual reaction appreciated. The largest fibroid is in the lower uterine segment as referenced above
[2018-04-13 15:11] LABS: URINE BILIRUBIN NEGATIVE (NEGATIVE); URINE BLOOD LARGE (NEGATIVE); URINE GLUCOSE (UA) NEGATIVE (NEGATIVE); URINE LEUKOCYTE ESTERASE NEGATIVE Leu/uL (NEGATIVE); URINE PROTEIN NEGATIVE mg/dL (<30 mg/dL); URINE UROBILINOGEN 0.2 E.U./dL (<1 E.U./dL)
[2018-04-13 15:31] VITALS: BP 110/68; PULSE 78
[2018-04-13 15:32] LABS: URINE APPEARANCE CLEAR (CLEAR); URINE COLOR STRAW (YELLOW)
[2018-04-13 15:33] LABS: URINE RBC 20 - 25 /hpf (0-2); URINE WBC 0 - 2 /hpf (0-6)
== END 2018-04-13 15:41 | disposition home or self-care (01) ==
LOC: ED 12:46
DX: O20.0 Threatened abortion (principal); Z3A.08 8 weeks gestation of pregnancy

== ENCOUNTER 2019-03-23 08:05 | Emergency (ER) | payer OTHER ==
[2019-03-23 08:13] VITALS: BMI 35.9
--- NOTE | 2019-03-23 09:08 | ED PDOC ---
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 Patient reports pain radiates to her left knees and feet, and states she has difficulty walking. Patient also reports she went to a hospital in [facility] in April 2018, where she was told she had a tumor in her left kidney. She reports she has never seen a doctor here in [place], and states it was due to her . She endorses difficulty urinating and dysuria. She denies any fevers, chills, headaches, dizziness, shortness of breath, nausea, hematuria, chest pain, or any other somatic complaints. She reports her LNMP was last month. PMD: None Time/Duration: > month Symptom Onset: Gradual Symptom Course: Unchanged Activities at Onset: Light Context: Home Past Medical History - Provider Review Nursing Documentation Reviewed: Yes - Infectious Disease Hx of Infectious Diseases: None - Tetanus Immunization Tetanus Immunization: Unknown - Psychiatric Hx Substance Use: No - Anesthesia Hx Anesthesia: No Family/Social History - Physician Review Nursing Documentation Reviewed: Yes Family/Social History: Unknown Family HX Smoking Status: Never Smoked Hx Alcohol Use: No Hx Substance Use: No Allergies/Home Meds Allergies/Adverse Reactions: Allergies No Known Allergies Allergy (Verified 03/23/19 08:21) Review of Systems - Physician Review All systems were reviewed & negative as marked: Yes - Review of Systems Constitutional: absent: Fevers Respiratory: absent: SOB, Cough Cardiovascular: absent: Chest Pain Gastrointestinal: absent: Nausea, Vomiting Genitourinary Female: Dysuria, Other (+difficulty urinating) Musculoskeletal: absent: Back Pain, Neck Pain Neurological: absent: Headache, Dizziness Endocrine: absent: Diaphoresis Physical Exam Vital Signs Reviewed: Yes Vital Signs Temp Pulse Resp BP Pulse Ox 03/23/19 08:22 97.9 F 83 17 110/70 96 Temperature: Afebrile Blood Pressure: Normal Pulse: Regular Respiratory Rate: Normal Appearance: Positive for: Well-Appearing, Non-Toxic, Comfortable Pain Distress: None Mental Status: Positive for: Alert and Oriented X 3 - Systems Exam Head: Present: Atraumatic, Normocephalic Pupils: Present: PERRL Extroacular Muscles: Present: EOMI Conjunctiva: Present: Normal Mouth: Present: Moist Mucous Membranes Neck: Present: Normal Range of Motion Respiratory/Chest: Present: Clear to Auscultation, Good Air Exchange. No: Respiratory Distress, Accessory Muscle Use Cardiovascular: Present: Regular Rate and Rhythm, Normal S1, S2. No: Murmurs Abdomen: Present: Other (+periumbilical pain). No: Tenderness, Distention, Peritoneal Signs Back: Present: Normal Inspection, CVA Tenderness Upper Extremity: Present: Normal Inspection. No: Cyanosis, Edema Lower Extremity: Present: Normal Inspection. No: Edema Neurological: Present: GCS=15, Speech Normal Skin: Present: Warm, Dry, Normal Color. No: Rashes Psychiatric: Present: Alert, Oriented x 3, Normal Insight, Normal Concentration Medical Decision Making ED Course and Treatment: 03/23/19 09:05 Impression: 38 year old female presents to the emergency department complaining of left lower back pain x 10 months. Differential Diagnosis included but are not limited to: --Pyelonephritis --Kidney Stone Plan: -- Labs -- CT A&P -- Urinalysis -- Urirne preg test -- Urine culture -- Reassess and disposition Prior Visits: Notes and results from previous visits were reviewed. Progress Notes: 03/23/19 10:55 Labs show no evidence of leukocytosis. UA shows trace leukocytes and many bacteria. Rocephin hanging. - Lab Interpretations Lab Results: 03/23/19 09:20 03/23/19 09:20 Lab Results 03/23/19 09:20: Sodium 141, Potassium 3.8, Chloride 108 H, Carbon Dioxide 24, Anion Gap 13, BUN 7, Creatinine 0.4 L, Est GFR ( Amer) > 60, Est GFR (Non-Af Amer) > 60, Random Glucose 95, Calcium 8.7, Magnesium 2.0, Total Bilirubin 0.4, AST 18, ALT 19, Alkaline Phosphatase 61, Total Protein 7.1, Albumin 4.0, Globulin 3.1, Albumin/Globulin Ratio 1.3 03/23/19 09:20: PT 12.0, INR 1.06, APTT 32.3 03/23/19 09:20: WBC 7.5, RBC 4.67, Hgb 13.0, Hct 37.7, MCV 80.7, MCH 27.8, MCHC 34.5, RDW 12.8, Plt Count 274, MPV 9.1, Neut % (Auto) 72.1 H, Lymph % (Auto) 21.3 L, Gilmer % (Auto) 5.2, Eos % (Auto) 1.3 L, Baso % (Auto) 0.1, Lymph # (Auto) 1.6, Gilmer # (Auto) 0.4, Eos # (Auto) 0.1, Baso # (Auto) 0.01, Absolute Neuts (auto) 5.41, ESR 20 03/23/19 09:20: Urine Color Yellow, Urine Appearance Clear, Urine pH 6.5, Ur Specific Herreid 1.010, Urine Protein Negative, Urine Glucose (UA) Negative, Urine Ketones Negative, Urine Blood Negative, Urine Nitrate Negative, Urine Bilirubin Negative, Urine Urobilinogen 0.2, Ur Leukocyte Esterase Trace H, Urine RBC 0 - 2, Urine WBC 2 - 5, Ur Epithelial Cells 6 - 8 H, Amorphous Sediment Few, Urine Bacteria Many I have reviewed the lab results: Yes - RAD Interpretation Narrative RAD Interpretations (Text): 03/23/19 11:03 CT abdomen and pelvis reviewed by Jonathan Rogers MD, shows: FINDINGS: LOWER THORAX: No visible consolidation, pleural effusion, or pneumothorax. LIVER: Hypoattenuation of the liver compatible with hepatic steatosis. GALLBLADDER AND BILE DUCTS: Unremarkable. PANCREAS: Unremarkable. SPLEEN: At least 2 probable sub cm splenules. Otherwise unremarkable. ADRENALS: Unremarkable. No mass. KIDNEYS AND URETERS: The kidneys enhance symmetrically. No hydronephrosis or obstructing calculus identified. Too small to characterize 5 mm right renal hypodensity; statistically likely cysts. VASCULATURE: No aortic aneurysm. No atherosclerotic calcification or mural plaque present. BOWEL: Stomach is nondistended. Lack of oral contrast limits evaluation for bowel pathology. Bowel loops appear within normal limits of caliber without evidence of obstruction. APPENDIX: The appendix appears within normal limits of caliber. No secondary signs of acute appendicitis. PERITONEUM: No significant free fluid. No definite free air. LYMPH NODES: No bulky adenopathy identified. BLADDER: Unremarkable. REPRODUCTIVE: Fibroid uterus. BONES: No acute osseous abnormality is detected. OTHER FINDINGS: None. IMPRESSION: Too small to characterize right renal hypodensity; statistically likely cyst. Correlate with prior outside imaging if available. Hypoattenuation of the liver compatible with hepatic steatosis. Fibroid uterus. Additional findings as above. Radiology Orders: 03/23/19 09:03 ABD & PELVIS IV CONTRAST ONLY [CT] Stat Senior Writer: Radiologist - Salvadoribrubens Statement The provider has reviewed the documentation as recorded by the Scribe Frida Hernandez All medical record entries made by the Scribe were at my direction and personally dictated by me. I have reviewed the chart and agree that the record accurately reflects my personal performance of the history, physical exam, medical decision making, and the department course for this patient. I have also personally directed, reviewed, and agree with the discharge instructions and disposition. Disposition/Present on Arrival - Present on Arrival Any Indicators Present on Arrival: No History of DVT/PE: No History of Uncontrolled Diabetes: No Urinary Catheter: No History of Decub. Ulcer: No History Surgical Site Infection Following: None - Disposition Have Diagnosis and Disposition been Completed?: Yes Diagnosis: UTI (urinary tract infection), Renal colic on left side Disposition: HOME/ ROUTINE Disposition Time: 10:59 Patient Plan: Discharge Patient Problems: Current Active Problems Problem Status Onset Renal colic on left side Acute UTI (urinary tract infection) Acute Condition: STABLE Discharge Instructions (ExitCare): Urinary Tract Infection, Adult (DC), Kidney Infection (DC) Print Language: NIGERIEN Additional Instructions: All medical record entries made by the Scribe were at my direction and personally dictated by me. I have reviewed the chart and agree that the record accurately reflects my personal performance of the history, physical exam, medic al decision making, and the department course for this patient. I have also personally directed, reviewed, and agree with the discharge instructions and disposition. Please follow up with the PCP listed in your discharge paperwork Please take medications as prescribed Prescriptions: Cephalexin [cephalexin] 500 mg PO BID 5 Days #10 cap Naproxen 500 mg PO BID #10 tab Referrals: Dior Strickland DO [[facility]] - Follow up with primary Forms: [employer] ([place])
[2019-03-23 09:26] LABS: BASO # 0.01 K/mm3 (0.0-2.0); BASO % 0.1 % (0.0-3.0); EOS # 0.1 (0.0-0.7); EOS % 1.3 % (1.5-5.0); LYMPH # 1.6 (1.2-3.4); LYMPH % 21.3 % (22.0-35.0); MEAN CELL VOLUME 80.7 fl (80.0-105.0); MEAN CORPUSCULAR HEMOGLOBIN 27.8 pg (25.0-35.0); MEAN CORPUSCULAR HGB CONC 34.5 g/dl (31.0-37.0); MEAN PLATELET VOLUME 9.1 fl (7.0-11.0); MONO # 0.4 (0.1-0.6); MONO % 5.2 % (1.0-6.0); RBC 4.67 10^6/uL (3.5-6.1); RED CELL DISTRIBUTION WIDTH 12.8 % (11.5-14.5); WHITE BLOOD COUNT 7.5 10^3/uL (4.5-11.0)
[2019-03-23 09:35] LABS: PH,URINE 6.5 (4.7-8.0); URINE APPEARANCE CLEAR (CLEAR); URINE BILIRUBIN NEGATIVE (NEGATIVE); URINE BLOOD NEGATIVE (NEGATIVE); URINE COLOR YELLOW (YELLOW); URINE GLUCOSE (UA) NEGATIVE (NEGATIVE); URINE LEUKOCYTE ESTERASE TRACE Leu/uL (NEGATIVE); URINE PROTEIN NEGATIVE mg/dL (<30 mg/dL); URINE UROBILINOGEN 0.2 E.U./dL (<1 E.U./dL)
[2019-03-23 09:36] LABS: INR 1.06; PARTIAL THROMBOPLASTIN TIME 32.3 Seconds (26.9-38.3)
[2019-03-23 09:38] LABS: URINE AMORPHOUS SEDIMENT FEW /hpf; URINE BACTERIA MANY /hpf; URINE RBC 0 - 2 /hpf (0-2)
[2019-03-23 09:57] LABS: ALB/GLOB RATIO 1.3 (1.1-1.8); ALT/SGPT 19 U/L (7-56); AST/SGOT 18 U/L (14-36); BLOOD UREA NITROGEN 7 mg/dL (7-21); CALCIUM 8.7 mg/dL (8.4-10.5); GFR NON-AFRICAN AMERICAN > 60
[2019-03-23] MEDS ORDERED: Sodium Chloride 0.9% 1,000 ML IV STA (10:07)
[2019-03-23] MEDS ORDERED: cefTRIAXone 1 gm 1 GM/100 ML BAG IVPB STA (10:11)
[2019-03-23 10:46] VITALS: TEMP 98
--- NOTE | 2019-03-23 10:47 | CT ---
Date of service: 03/23/2019 PROCEDURE: CT Abdomen and Pelvis with contrast HISTORY: L CVA tenderness w/ dx renal mass COMPARISON: None available. TECHNIQUE: Contrast dose: 150 mL Omnipaque 350 IV Radiation dose: Total exam DLP = 1063.51 mGy-cm. This CT exam was performed using one or more of the following dose reduction techniques: Automated exposure control, adjustment of the mA and/or kV according to patient size, and/or use of iterative reconstruction technique. FINDINGS: LOWER THORAX: No visible consolidation, pleural effusion, or pneumothorax. LIVER: Hypoattenuation of the liver compatible with hepatic steatosis. GALLBLADDER AND BILE DUCTS: Unremarkable. PANCREAS: Unremarkable. SPLEEN: At least 2 probable sub cm splenules. Otherwise unremarkable. ADRENALS: Unremarkable. No mass. KIDNEYS AND URETERS: The kidneys enhance symmetrically. No hydronephrosis or obstructing calculus identified. Too small to characterize 5 mm right renal hypodensity; statistically likely cysts. VASCULATURE: No aortic aneurysm. No atherosclerotic calcification or mural plaque present. BOWEL: Stomach is nondistended. Lack of oral contrast limits evaluation for bowel pathology. Bowel loops appear within normal limits of caliber without evidence of obstruction. APPENDIX: The appendix appears within normal limits of caliber. No secondary signs of acute appendicitis. PERITONEUM: No significant free fluid. No definite free air. LYMPH NODES: No bulky adenopathy identified. BLADDER: Unremarkable. REPRODUCTIVE: Fibroid uterus. BONES: No acute osseous abnormality is detected. OTHER FINDINGS: None. IMPRESSION: Too small to characterize right renal hypodensity; statistically likely cyst. Correlate with prior outside imaging if available. Hypoattenuation of the liver compatible with hepatic steatosis. Fibroid uterus. Additional findings as above.
[2019-03-23 12:09] VITALS: BP 105/72; PULSE 73; RESP 17; O2SAT 97
== END 2019-03-23 12:32 | disposition home or self-care (01) ==
LOC: ED 08:05
DX: N39.0 Urinary tract infection, site not specified (principal); N23 Unspecified renal colic; N28.89 Other specified disorders of kidney and ureter; D25.9 Leiomyoma of uterus, unspecified
CPT/HCPCS: 74177; 80053; 81001; 81025; 83735; 85025; 85610; 85651; 85730; 87086; 96365; 96375; 99284; J0696; J1885; J7030; Q9967